=== PATIENT | female | born 1970 | race Caucasian/White ===

== ENCOUNTER 2016-10-06 10:20 | Emergency (ER) | payer SELFPAY ==
--- NOTE | 2016-10-06 10:35 | PDOC ---
Lower Extremity Injury HPI - General Chief Complaint: Lower Extremity Problem/Injury Stated Complaint: RIGHT KNEE PAIN Date Seen by Provider: 10/06/16 Time Seen by Provider: 10:30 Source: POSITIVE: Patient Exam Limitations: POSITIVE: No limitations Nurse's Notes Reviewed & Considered: Yes - History of Present Illness Initial Comments: The patient is a 45-year-old female who presents to the emergency department with right knee pain. She states that she was stepping out of the pool yesterday evening when she felt some type of pop or pain in her right knee. This pain is progressively worsened since then. She has pain with any attempts at weightbearing or with bending of her knee. Most of the pain is over the medial aspect of her knee and under the kneecap. She has no history of significant injury other than strains in the past and no prior knee surgery. She denies any other associated injuries or complaints. She does state that when she attempts to bear weight that she has increased pain and it feels somewhat unstable. She also describes a "grinding" type sensation in the knee with attempts at movement. Have you received a tetanus shot in the past 10 years?: Unknown - Patient Home Medications Home Medications: Home Medications Amoxicillin 500 mg PO TID 10/06/16 Hydrocodone/Acetaminophen [Wheeler 5-325 Tablet] 1 - 2 each PO Q6H PRN #15 tablet 10/06/16 Ibuprofen [Motrin] 800 mg PO TID 10/06/16 - Patient Allergies Allergies/Adverse Reactions: Allergies Allergy/AdvReac Type Severity Reaction Status Date / Time Sulfa (Sulfonamide Allergy HIVES Verified 10/06/16 10:32 Antibiotics) Past Medical History Past Medical History Reviewed: Other (please comment) (She reports history of sciatic pain and osteoarthritis in her back.) ROS - Limitations ROS Limitations: No Limitations Constitution: DENIES: Chills, Fever Cardiovascular: REPORTS: Denies Cardiac Symptoms Respiratory: REPORTS: Denies Resp Symptoms Neurological: REPORTS: Denies Neuro Symptoms Lower Ext Complaint Exam - General Appearance General Appearance: POSITIVE: Alert, Cooperative, No Acute Distress - Extremities Lower Extremity: POSITIVE: Other (Examination the right knee reveals no obvious swelling or deformity, she has limited range of motion of the knee secondary to pain, ligamentous stability is difficult to assess secondary to pain, good dorsalis pedis pulse in the right foot with normal sensation in the right foot) Lower Ext Complaint Progress - Results Reviewed by me Xrays/CTs/US Reviewed by me: Yes Discussed with Radiologist: Yes Radiology Findings: X-ray of the right knee is negative for any fracture or dislocation per radiologist. - Patient's Progress MDM / ED Course: X-ray of the right knee is negative for any obvious fracture. She was placed in a straight leg immobilizer for comfort and was given crutches to assist with ambulation. She will continue ice and elevation. She is advised to take ibuprofen 600 mg every 6 hours as needed for pain. She was also given a prescription for Wheeler 5/325 which she can take one or 2 every 6 hours as needed for pain. She will return to the emergency room if increased pain or numbness, any worsening or change in symptoms. She is advised follow-up with orthopedic surgery in 5-7 days. - Consult Counseled: POSITIVE: Patient, RE: Radiology Results, RE: DX, RE: Need for F/U Patient Care Time - Estimated PCT Patient Care Time (In Minutes): 15 Vital Signs - Recent Vital Signs Vital Signs: Vital Signs (Last 8 hours) Temp Pulse Resp BP Pulse Ox 10/06/16 10:34 97.9 F 86 16 147/100 98 - VS Reviewed Vital Signs Reviewed: Yes Discharge Clinical Impression: Injury of knee Discharge Disposition: Discharged to Home Condition: Stable Prescriptions / Orders: Hydrocodone/Acetaminophen [Wheeler 5-325 Tablet] 1 - 2 each PO Q6H PRN #15 tablet PRN Reason: Pain Patient Instructions Given at Discharge: Knee Pain (ED) Additional Instructions: The x-ray of your right knee did not reveal any obvious fracture or dislocation. It is possible that she may have an injury to the meniscus or a ligament in the knee. Recommend straight leg immobilizer for comfort. Crutches to assist with walking. Ice and elevate the right knee. Continue ibuprofen 600 mg every 6 hours as needed for pain. Wheeler 5/325 one to 2 every 6 hours as needed for pain. Return to the emergency room if increased pain, numbness, worsening or change in symptoms. Recommend follow-up with orthopedics in 5-7 days. Follow Up With: NONE,NONE [Primary Care Provider] -
[2016-10-06 10:44] VITALS: RESP 16; TEMP 97.9
--- NOTE | 2016-10-06 12:01 | DI ---
RIGHT KNEE, 10/06/2016 9:32 AM: Clinical History: Injury. Previous Exam: None at this facility. 3 views are submitted. There is no acute soft tissue, osseous, or joint abnormality. Reading: Normal right knee exam.
== END 2016-10-06 11:16 | disposition home or self-care (01) ==
LOC: ER 10:20
DX: M25.561 Pain in right knee (principal)
CPT/HCPCS: 73562; 99282